=== PATIENT | male | born 1965 | race Caucasian/White ===

== ENCOUNTER → 2018-12-29 | Outpatient (CLI) | payer BC ==
--- NOTE | 2019-01-02 15:51 | SLE ---
[facility] [place] [address] POLYSOMNOGRAPHY STUDY Name: WILLJEAN Lanre Room #: [facility]#: [id number] Admission: 12/29/18 Attend Phys: Jelani Cook MD Discharge: Date of : 61 Report #: [id number] THIS REPORT FOR: //name// CC: Jelani Lutz DO DATE OF SERVICE: 12/29/2018 SLEEP STUDY ATTENDING PHYSICIAN: Dr. Bo Lutz. The patient is a 53-year-old who weighs 226 pounds with a BMI of 31.5. The patient had a home sleep study and was found to have severe ROSA ELENA. The patient returned for in-lab CPAP titration study performed at [facility]. During the night study, the patient spent 485 minutes in bed and slept for 451 minutes with an excellent sleep efficiency of 93%. Sleep latency was 5.2 minutes with a REM latency of 67 minutes. Sleep architecture showed increased stage 1 sleep, normal stage 2 sleep, normal slow wave and normal REM sleep. EKG monitoring revealed an average heart rate of 66 beats per minute. No sustained arrhythmias observed. PLMS were seen at an index of 18 per hour and 8 per hour caused EEG arousals. The patient was started on CPAP at a pressure of 9 cm water and titrated up to 10 cm of water. At the final pressure, the patient slept for 363 minutes including 73 minutes of supine REM sleep. The patient's AHI was reduced to 0 per hour and oxygen saturation remained above 90%. IMPRESSION: 1. Severe sleep apnea diagnosed by home sleep study. 2. Mild periodic limb movements. RECOMMENDATIONS: 1. CPAP at 10 cm water completely eliminated the patient's sleep apnea and should be used on a nightly basis. 2. Follow up in 4-6 weeks to assess compliance with CPAP and to document clinical improvement. 3. Weight loss is strongly advised. 4. Avoid [employer] depressants. 5. Cautioned regarding driving until symptoms of sleep apnea resolve with the use of CPAP. [facility] [address] [place] [address] POLYSOMNOGRAPHY STUDY Name: JEAN SOLIS Room #: [facility]#: [id number] Admission: 12/29/18 Attend Phys: Jelani Cook MD Discharge: Date of : 61 Report #: [id number] 6. PLMS does not need to be treated unless the patient has symptoms of restless legs during the day. <ELECTRONICALLY SIGNED> By: Jelani Cook MD 01/02/19 [id number] [id number] Jelani Cook MD /nt
== END ==
LOC: SLEEPLAB 15:50
DX: G47.30 Sleep apnea, unspecified (principal); G47.61 Periodic limb movement disorder